=== PATIENT | female | born 1970 | race Caucasian/White ===

== ENCOUNTER 2019-06-26 13:58 | Emergency (ER) | payer MEDICAID ==
[~2019-06-26] VITALS: Ht 147.3 cm; Wt 65.9 kg
[2019-06-26 14:58] VITALS: BP 153/84; Ht 147.3 cm; Wt 65.9 kg
[2019-06-26] MEDS ORDERED: BACLOFEN20 M1 PO (16:42)
[2019-06-26] MEDS ORDERED: VOLTAREN75 MG PO (16:42)
== END 2019-06-26 17:22 | disposition home or self-care (01) ==
LOC: D.ER 13:58
DX: M25.512 Pain in left shoulder (principal); M62.838 Other muscle spasm; V89.2XXA Person injured in unspecified motor-vehicle accident, traffic, initial encounter